=== PATIENT | male | born 1980 | race Two or more races ===

== ENCOUNTER → 2024-03-11 | Outpatient (CLI) | payer MEDICAID, SELFPAY ==
--- NOTE | 2024-03-11 | XR_ITS ---
Examination: Lumbar spine, 5 views Technique: Lumbar spine AP, lateral, coned lateral lower lumbar spine, bilateral obliques 5 views Exam date and time: March 11, 2024 0834 hours INDICATIONS: Lower back pain beginning 4 months ago. FINDINGS: Adequate alignment lumbar vertebral bodies Mild to moderate degenerative disc disease L5-S1 No spondylolisthesis No lumbar fracture IMPRESSION: [id number] degenerative disc disease L5-S1
--- NOTE | 2024-03-11 | XR_ITS ---
Examination: Shoulder,left, 3 views Technique: Shoulder AP internal rotation, AP external rotation, Y view shoulder, 3 views Exam date and time :March 11, 2024 0834 hours INDICATIONS: Left shoulder upper arm pain beginning 4 months ago FINDINGS: Moderate osteopenia Moderate narrowing glenohumeral joint Moderate osteoarthritis acromioclavicular joint No fracture or shoulder dislocation IMPRESSION: Moderate narrowing glenohumeral joint
== END | disposition home or self-care (01) ==
LOC: CDIM 07:21
PROVIDERS: PCP Physician Assistant; Referring Provider Physician Assistant; Visit Provider Physician Assistant
DX: M25.812 Other specified joint disorders, left shoulder (principal); M51.379 Other intervertebral disc degeneration, lumbosacral region without mention of lumbar back pain or lower extremity pain
CPT/HCPCS: 72110; 73030